=== PATIENT | female | born 1955 | race Two or more races ===

== ENCOUNTER 2025-04-30 10:58 | Outpatient (CLI) | payer OTHER, MEDICAID ==
[2025-04-30 11:20] LABS: Hematocrit 41.0 % (36.0-46.0); Hemoglobin 14.1 g/dL (12.2-16.2); Mean Corpuscular Hemoglobin 32.2 pg (28.0-32.0); Mean Corpuscular Volume 93.8 fL (80.0-100.0); Nucleated Red Blood Cells % 0.1 %
[2025-04-30 11:32] LABS: INR 0.97 (0.9-1.15); Prothrombin Time 10.3 sec (9.3-11.8)
[2025-04-30 12:00] LABS: Alanine Aminotransferase 18 U/L (7-40); Albumin 4.4 g/dL (3.2-4.8); Alkaline Phosphatase 91 U/L (46-116); Amylase 116 U/L (30-118); Anion Gap 6 (5-15); BUN/Creatinine Ratio 11.8 (10.0-20.0); Blood Urea Nitrogen 10 mg/dL (9-23); Calcium 9.4 mg/dL (8.7-10.4); Carbon Dioxide 31 mmol/L (20-31); Chloride 97 mmol/L (98-107); Glucose 112 mg/dL (74-106); Lipase 46 U/L (12-53); Potassium 4.0 mmol/L (3.5-5.1); Sodium 134 mmol/L (136-145); Total Protein 7.0 g/dL (5.7-8.2)
[2025-04-30 12:01] LABS: Bilirubin, Total 0.5 mg/dL (0.2-1.0)
== END 2025-04-30 17:00 | disposition home or self-care (01) ==
LOC: LAB 10:58
PROVIDERS: ATTEND Internal Medicine Gastroenterology
DX: Z01.812 Encounter for preprocedural laboratory examination (principal); R93.3 Abnormal findings on diagnostic imaging of other parts of digestive tract; E11.9 Type 2 diabetes mellitus without complications; D64.9 Anemia, unspecified; K86.2 Cyst of pancreas
CPT/HCPCS: 36415; 80053; 82150; 82378; 83036; 83690; 85025; 85610; 86301